=== PATIENT | male | born 1975 | race Caucasian/White ===

== ENCOUNTER 2019-05-02 03:45 | Emergency (ER) | payer MEDICAID ==
[~2019-05-02] VITALS: Ht 175.3 cm; Wt 88.6 kg
[2019-05-02 03:55] VITALS: Ht 175.3 cm; Wt 88.6 kg
[2019-05-02 06:27] VITALS: BP 113/85
== END 2019-05-02 06:27 | disposition home or self-care (01) ==
LOC: ED 03:45
DX: M79.642 Pain in left hand (principal)
CPT/HCPCS: Q0092